=== PATIENT | male | born 1955 | race Caucasian/White ===

== ENCOUNTER 2021-07-12 16:21 | Outpatient (CLI) | payer OTHER | END 2021-07-12 16:22 | disposition home or self-care (01) | LOC: CSHCT 16:21 → EDSTATUS 16:30 | PROVIDERS: ATTEND Internal Medicine | DX: Z13.89 Encounter for screening for other disorder (principal); J98.4 Other disorders of lung | CPT/HCPCS: 71250 ==

== ENCOUNTER 2022-12-18 15:08 | Outpatient (CLI) | payer OTHER | END 2022-12-18 15:09 | disposition home or self-care (01) | LOC: CSHCP 15:08 | PROVIDERS: ATTEND Internal Medicine | DX: Z13.89 Encounter for screening for other disorder (principal) | CPT/HCPCS: 94010; 94729 ==